=== PATIENT | male | born 1995 | race African-American/Black ===

== ENCOUNTER 2022-05-04 14:16 | Emergency (ER) | payer OTHER, SELFPAY ==
--- NOTE | ~2022-05-04 | XR_ITS ---
EXAMINATION: XR ankle RT min 3V DATE: 05/04/2022 14:41 INDICATION: Generalized right ankle pain post twisting injury TECHNIQUE: Anteroposterior, oblique, mortise, and lateral views of the right ankle were obtained. COMPARISON: None. FINDINGS: Alignment is normal. No fracture. Joint spaces are well maintained. No ankle joint effusion. Soft t issue swelling about the lateral malleolus. IMPRESSION: 1. No right ankle joint effusion or osseous abnormality. Reviewed, dictated and finalized at location [facility]
--- NOTE | 2022-05-04 14:21 | ED.LOWEXIN ---
HPI - Extremity Injury (Lower) General Chief Complaint: Extremity Injury, Lower Stated Complaint: right ankle injury Time Seen by Provider: 05/04/22 14:21 Source: patient and RN notes reviewed History of Present Illness HPI Narrative: Patient is a 26-year-old male who presents to urgent care with complaints of right ankle pain and swelling. Patient states he twisted it this morning while getting out of his truck for work. Patient has been taking ibuprofen for the pain. No other acute complaints or injuries. No acute distress noted. Patient aware of the plan care. Some parts of this dictation were generated by voice recognition software and may contain typographical and/or grammatical inaccuracies. Related Data Home Medications Medication Instructions Recorded Confirmed No Home Medications 05/04/22 05/04/22 Allergies Allergy/AdvReac Type Severity Reaction Status Date / Time No Known Allergies Allergy Verified 05/04/22 14:22 Review of Systems Review of Systems: CONSTITUTIONAL: Denies fever, chills, or sweats. EYES: Denies visual changes, redness, or discharge. ENT: Denies rhinorrhea, congestion, sore throat, or otalgia. CARDIOVASCULAR: Denies chest pain, palpitations, or edema. RESPIRATORY: Denies cough or dyspnea. GASTROINTESTINAL: Denies abdominal pain, nausea, vomiting, or diarrhea. GENITOURINARY: Denies dysuria or hematuria. SKIN: Denies rash or itching. MUSCULOSKELETAL: Reports right ankle pain and swelling NEUROLOGIC: Denies headache, numbness, or weakness. All other systems reviewed are negative, except as documented in HPI. PMFSH Comments At the time of my signature, I reviewed and agree with the nursing past medical, surgical, social, and family history. There is no relevant family history pertinent to the patient complaint. Exam Narrative: GENERAL: This is a well-nourished, well-developed patient, in no apparent distress. HEAD: normocephalic, atraumatic. EYES: PERRL. Sclera clear/white. Vision is grossly intact. EARS: External ears normal NOSE: External nose normal with no obvious nasal discharge, nares without redness, no rhinorrhea. THROAT: Mucous membranes moist NECK: Neck supple SKIN: warm, intact with no suspicious lesions or rash, good texture and turgor. NEURO: awake, alert, and oriented to person, place and time. There were no obvious focal neurologic abnormalities. EXTREMITIES: Moderate edema noted to right lateral malleolus with mild edema to the right medial malleolus with exacerbated pain on range of motion. Positive strong right pedal pulse with capillary refill less than 2 seconds. No obvious deformity/fracture noted. Course Course Level of Care: Express Care Visit Vital Signs Vital signs: Vital Signs Temperature 98.4 F 05/04/22 14:23 Pulse Rate 92 05/04/22 14:23 Respiratory Rate 16 05/04/22 14:23 Blood Pressure 158/89 H 05/04/22 14:23 Pulse Oximetry 98 05/04/22 14:23 Oxygen Delivery Room Air 05/04/22 14:23 Temperature 98.4 F 05/04/22 14:23 Pulse Rate 92 05/04/22 14:23 Respiratory Rate 16 05/04/22 14:23 Blood Pressure 158/89 H 05/04/22 14:23 Pulse Oximetry 98 05/04/22 14:23 Oxygen Delivery Room Air 05/04/22 14:23 Reviewed- Patient is informed that they may have pre-hypertension or hypertension based on a blood pressure reading in the department. I recommend the patient call the primary care provider listed on their discharge instructions or a physician of their choice this week to arrange follow-up for further evaluation of possible pre-hypertension or hypertension. MDM - Extremity Injury (Lower) MDM Narrative Medical decision making narrative: Reviewed x-ray results with the patient. He is aware that x-ray is negative for fracture or deformity. There is notable swelling of the ankle. Advised the patient to wear the Dioni wrap or obtain an [id number] support brace. Wear the Dioni/brace for the next 3-5 days or until swelli
[2022-05-04 14:23] VITALS: BP 158/89; PULSE 92; RESP 16; TEMP 36.9; O2SAT 98
== END 2022-05-04 15:08 | disposition home or self-care (01) ==
PROVIDERS: Emergency Provider Nurse Practitioner Family; PCP Internal Medicine
DX: S93.401A Sprain of unspecified ligament of right ankle, initial encounter (principal); S96.911A Strain of unspecified muscle and tendon at ankle and foot level, right foot, initial encounter; X50.9XXA Other and unspecified overexertion or strenuous movements or postures, initial encounter
CPT/HCPCS: 73610; 99213; G0463